=== PATIENT | female | born 1960 | race Caucasian/White ===

== ENCOUNTER 2017-03-22 09:56 | Emergency (ER) | payer OTHER ==
[~2017-03-22 09:56] MED LIST: ASPIRIN325 MG PO; LIPITOR80 MG PO; LOPRESSOR50 MG PO; MAALOX DPS30 ML PO; NITROSTAT0.4 MG PO; SURFAK240 MG PO; TYLENOL325 MG PO; VITAMIN D400 UNIT PO; ZYRTEC10 M3 PO
--- NOTE | 2017-03-28 16:10 | ER ---
ADMIT: 03/22/2017 RM/LOC: ER [facility] MR#: [id number] [address] [id number] LESLIJe KYAW Louann [address] [place] [id number] Emergency Room Report SEX: F AGE: 56 : 1960 DATE: 03/22/2017 ADDENDUM: CHIEF COMPLAINT: Hypertension. HISTORY OF PRESENT ILLNESS: This is a 56-year-old, who took her blood pressure this morning. At the same time, she took her metoprolol, it was 160 then. Then she got very anxious about it. Then, her blood pressure spiked up to 190 systolic. Upon arrival, her blood pressure was 164. She has been sitting down here for a little bit, it is down to 150 systolic. I told her that the Metoprolol kind of continued to work in bringing her blood pressure down. She denies any headache. Denies any chest pain. Denies any shortness of breath. Really, actually, asymptomatic of her blood pressure at this time. I told her she did not need any additive blood pressure medications. Told her it is okay to continue to check her blood pressure 1 or 2 times a day, to share those readings with Dr. Jayme Thakkar, but continue her metoprolol twice a day. She also asked me questions about hitting her head on March 09. She is worried she could possibly have a head bleed. She has no confusion per her and her . No headache. No nausea. I told her likelihood of intracranial injury would be very low since she is asymptomatic. At this time, I do not think we should do any head CT or MRI. She feels okay going home. Told her to follow up with Dr. Thakkar if she notices that her blood pressures continue to be elevated. CLINICAL IMPRESSION: Hypertension, currently being treated. RYAN Leone / Mann Olivo MD / [facility] JOB #: [id number] CC: Mann Olivo MD, Attending Physician UNKNOWN, Family Physician
== END 2017-03-22 11:00 | disposition home or self-care (01) ==
LOC: ER 09:56
DX: I10 Essential (primary) hypertension (principal); F41.9 Anxiety disorder, unspecified; Z90.49 Acquired absence of other specified parts of digestive tract

== ENCOUNTER → 2017-04-04 | Outpatient (CLI) | payer OTHER | END | disposition home or self-care (01) | LOC: RAD.S 11:12 | DX: Z12.31 Encounter for screening mammogram for malignant neoplasm of breast (principal) ==